=== PATIENT | male | born 1970 | race Caucasian/White ===

== ENCOUNTER 2023-11-19 12:14 | Inpatient (IN) | payer OTHER ==
[2023-11-19 13:45] VITALS: BMI 31.0
[2023-11-19] MEDS ORDERED: BENZOCAINE/MENTHOL (CHLORASEPTIC ) LOZENGE MM PRN (14:20)
[2023-11-19] MEDS ORDERED: BENZONATATE 200 MG CAPSULE PO PRN (14:20)
[2023-11-19] MEDS ORDERED: IBUPROFEN 400 MG TABLET (FP) PO PRN (14:20)
[2023-11-19] MEDS ORDERED: NALOXONE (NARCAN) HCL 4 MG/0.1 ML SPRAY NS PRN (14:20)
[2023-11-19] MEDS ORDERED: DICYCLOMINE HCL 10 MG CAPSULE PO PRN (14:20)
[2023-11-19] MEDS ORDERED: LOPERAMIDE HCL 2 MG CAPSULE PO PRN (14:20)
[2023-11-19] MEDS ORDERED: POLYETHYLENE GLYCOL (HEALTHYLAX) 3350 17 GM PACKET PO PRN (14:20)
[2023-11-19] MEDS ORDERED: BISMUTH SUBSALICYLATE 262 MG/15 ML BTL PO PRN (14:20)
[2023-11-19] MEDS ORDERED: MAGNESIUM HYDROX 2400MG/30ML ORAL SUSPENSION 30 ML CUP PO PRN (14:20)
[2023-11-19] MEDS ORDERED: guaiFENesin 600 MG TABLET.ER (FP) PO PRN (14:20)
[2023-11-19] MEDS ORDERED: LORazepam 1 MG TABLET PO PRN (14:20)
[2023-11-19] MEDS ORDERED: NALOXONE HCL 0.4 MG/ML VIAL IM PRN (14:20)
[2023-11-19] MEDS: PRENATAL VITAMINS W/ FOLIC ACID TABLET (FP) PO SCH (17:26)
[2023-11-19] MEDS: NICOTINE 21 MG/24 HOURS TOPICAL PATCH TD SCH (17:26)
[2023-11-19] MEDS: METHOCARBAMOL 500 MG TABLET PO PRN (17:27)
[2023-11-19] MEDS: LORazepam 2 MG TABLET PO SCH (17:27)
[2023-11-19] MEDS ORDERED: FLUTICASONE PROP 0.05% 16 GM NASAL SPRAY NS PRN (18:46)
[2023-11-19] MEDS: MELATONIN 5 MG TABLETS PO SCH (22:06)
[2023-11-19] MEDS: THIAMINE 100 MG TABLET PO SCH (22:06)
[2023-11-19] MEDS: hydrOXYzine PAMOATE 25 MG CAPSULE (FP) PO PRN (22:06)
[2023-11-20] MEDS: ONDANSETRON *ODT* 4 MG TABLET SL PRN (05:32)
[2023-11-20] MEDS: MAG HYDROX/AL HYDROX/SIMETH 30 ML UNIT-DOSE CUP PO PRN (10:27)
[2023-11-20 11:15] LABS: HEMATOCRIT 43.1 % (35.4-49); HEMOGLOBIN 14.3 GM/dL (11.7-16.9); MCH 28.7 pg (25.7-33.7); MCHC 33.2 g/dl (32.0-35.9); MEAN CELL VOLUME 86.3 fl (80-96); MEAN PLT VOLUME 9.7 fl (7.5-11.1); PLATELET COUNT 280 10^3/uL (134-434); RDW 15.6 % (11.9-15.9); WHITE BLOOD COUNT 7.1 K/mm3 (4.0-10.0)
[2023-11-20 11:28] LABS: CALCIUM 8.8 mg/dL (8.5-10.1)
[2023-11-20 11:29] LABS: BLOOD UREA NITROGEN 15.2 mg/dL (7-18)
[2023-11-20 11:30] LABS: CREATININE 0.9 mg/dL (0.55-1.3)
[2023-11-20 11:32] LABS: BILIRUBIN,TOTAL 0.4 mg/dL (0.2-1); TOT PROT 7.2 g/dl (6.4-8.2)
[2023-11-20] MEDS: LACTULOSE 20 GM/30 ML UDC (FOR ORAL USE ONLY) PO SCH (14:25)
[2023-11-21] MEDS: LORazepam 1 MG TABLET PO SCH (05:51)
[2023-11-21] MEDS: IBUPROFEN 600 MG TABLET (FP) PO PRN (17:16)
[2023-11-21] MEDS: PANTOPRAZOLE 40 MG TABLET PO SCH (22:18)
[2023-11-22] MEDS: LORazepam 0.5 MG TABLET PO PRN (01:52)
[2023-11-22] MEDS: LORazepam 0.5 MG TABLET PO SCH (05:25)
[2023-11-22] MEDS: ACETAMINOPHEN 325 MG TABLET (FP) PO PRN (17:19)
[2023-11-23] MEDS: LORazepam 0.5 MG TABLET PO ONE (05:25)
[2023-11-23] MEDS ORDERED: ALBUTEROL SO4 HFA INHALER IH PRN ×2 (08:28→09:43)
[2023-11-23] MEDS ORDERED: FLUTICASONE PROP 0.05% IN SCH (08:30)
[2023-11-23] MEDS ORDERED: NAPROXEN 500 MG TABLET PO SCH (08:30)
[2023-11-23] MEDS: PANTOPRAZOLE 20 MG TABLET PO SCH (09:27)
[2023-11-23] MEDS: NAPROXEN 500 MG TABLET PO SCH (10:59)
[2023-11-23] MEDS: NAPROXEN 500 MG TABLET PO PRN (14:33)
[2023-11-24 09:24] VITALS: BP 139/87; PULSE 76; RESP 16; TEMP 97.7
== END 2023-11-24 11:14 | disposition other institution (70) | DRG 897 ==
LOC: YASAS 12:14 → Y3N 16:36
PROVIDERS: ADMIT Allergy & Immunology; ATTEND Surgery
PROC: HZ2ZZZZ Detoxification Services for Substance Abuse Treatment (ICD-10-PCS; principal; 2023-11-19)
DX: F10.230 Alcohol dependence with withdrawal, uncomplicated (principal); F14.20 Cocaine dependence, uncomplicated; E72.20 Disorder of urea cycle metabolism, unspecified; F17.210 Nicotine dependence, cigarettes, uncomplicated; F19.24 Other psychoactive substance dependence with psychoactive substance-induced mood disorder; F32.A Depression, unspecified; J45.909 Unspecified asthma, uncomplicated; K21.9 Gastro-esophageal reflux disease without esophagitis; M17.0 Bilateral primary osteoarthritis of knee
CPT/HCPCS: 36415; 80053; 80305; 80307; 82140; 85027; 86780; Q0162